=== PATIENT | male | born 1945 | race Two or more races ===

== ENCOUNTER 2019-06-07 11:34 | Inpatient (IN) | payer OTHER ==
[~2019-06-07] VITALS: Ht 167.6 cm; Wt 83.5 kg
[2019-06-12] MEDS ORDERED: COZAAR25 MG PO (16:08)
[2019-06-12] MEDS ORDERED: LANTUS SOL100 UNIT/1 SUBCUTANEO (16:08)
[2019-06-12] MEDS ORDERED: JANUMET XR 50-1 EAC1 PO (16:08)
[2019-06-12] MEDS ORDERED: LYRICA100 MG PO (16:09)
[2019-06-12] MEDS ORDERED: ASA81 MG PO (16:09)
[2019-06-12] MEDS ORDERED: TRAMADOL HCL50 MG PO (16:09)
[2019-06-12] MEDS ORDERED: PANTOPRAZOLE SO40 MG PO (16:10)
[2019-06-12] MEDS ORDERED: LIPITOR40 MG PO (16:11)
== END 2019-06-16 13:23 | disposition home or self-care (01) | DRG 349 ==
LOC: SURG 06-13 10:15 → O/R 06-15 06:10 → SURH 06-15 06:10 → SURG 06-15 10:15 → SURH 06-15 14:07
PROVIDERS: ADMIT Surgery
PROC: 0DBP7ZZ Excision of Rectum, Via Natural or Artificial Opening (ICD-10-PCS; principal; 2019-06-15 12:30)
DX: C20 Malignant neoplasm of rectum (principal); I11.9 Hypertensive heart disease without heart failure; D50.0 Iron deficiency anemia secondary to blood loss (chronic); I25.118 Atherosclerotic heart disease of native coronary artery with other forms of angina pectoris

== ENCOUNTER 2019-07-10 05:45 | Day surgery (SDC) | payer OTHER ==
[~2019-07-10 05:45] MED LIST: ASA81 MG PO; COZAAR25 MG PO; JANUMET XR 50-1 EAC1 PO; LANTUS SOL100 UNIT/1 SUBCUTANEO; LIPITOR40 MG PO; LYRICA100 MG PO; PANTOPRAZOLE SO40 MG PO; TRAMADOL HCL50 MG PO
[2019-07-10] MEDS ORDERED: PERCOCET 5-3251 EACH PO (12:53)
== END 2019-07-10 15:06 | disposition home or self-care (01) ==
LOC: CIR.AMB 05:45
DX: C20 Malignant neoplasm of rectum (principal)
CPT/HCPCS: 36561; C1751